=== PATIENT | female | born 1990 | race Caucasian/White ===

== ENCOUNTER 2017-08-04 15:46 | Emergency (ER) | payer MEDICAID ==
[~2017-08-04] VITALS: Ht 160 cm; Wt 65.3 kg
[2017-08-04 16:00] VITALS: BP 114/66
== END 2017-08-04 20:30 | disposition home or self-care (01) ==
LOC: ER 15:46
DX: L03.211 Cellulitis of face (principal)
CPT/HCPCS: 70450